=== PATIENT | female | born 1970 | race African-American/Black ===

== ENCOUNTER 2018-09-01 15:31 | Inpatient (IN) | payer BC ==
[~2018-09-01] VITALS: Ht 157.5 cm; Wt 142.2 kg
--- OUTSIDE RECORDS SUMMARY | 2018-09-01 15:39 | XMS REPORT | CCD ---
Author Author Auto Generated Organization [facility] Address Unknown Phone Unavailable Care Team Providers Care Telecommunications Cable Jointer Name Role Phone Olman Carlin CP Hugh Levi CP Problem List Condition Effective Dates Status Diabetes mellitus Resolved HTN - Hypertension Resolved Medications Medication Instructions Start Date End Date Status IDS med 100 mL IV, 4.17 ml/hr, Start date: 07/04/2012 07/07/2012 Discontinued 07/04/12 22:46:00, 100 ml, 143.182 Procardia XL 60 mg, 1 tab, Route: PO, Drug form: 07/06/2012 07/07/2012 Discontinued ERTAB, Daily, Dosing Weight 145.455, kg, Start date: 07/06/12 9:00:00, Duration: 30 day, Stop date: 08/04/12 9:00:00 heparin 5,000 unit, 1 mL, Route: SUB-Q, 07/04/2012 07/04/2012 Canceled Drug form: INJ, Q12H, Dosing Weight 143.182, kg, Start date: 07/04/12 21:00:00, Duration: 30 day, Stop date: 08/03/12 9:00:00 NS 1,000 mL 1,000 mL, Rate: 100 ml/hr, Infuse 07/05/2012 07/07/2012 Discontinued over: 10 hr, Route: IV, kg, Total Volume: 1,000, Start date: 07/05/12 6:44:00, Stop date: 08/04/12 6:43:00 IDS med Route: SUB-Q, Drug form: INJ, Q6H, 07/05/2012 07/07/2012 Discontinued Start date: 07/05/12 0:00:00, Stop date: 07/07/12 18:00:00 heparin 5,000 unit, 1 mL, Route: SUB-Q, 07/06/2012 07/07/2012 Discontinued Drug form: INJ, Q8H, Dosing Weight 145.455, kg, Start date: 07/06/12 0:00:00, Duration: 30 day, Stop date: 08/04/12 16:00:00 NIFEdipine 60 mg 60 mg, 1 tab, PO, Daily, 30 tab, 07/07/2012 Ordered oral tablet, Substitution Allowed, ERTAB extended release labetalol 300 mg 300 mg, 1 tab, PO, Q8H, 90 tab, 07/07/2012 Ordered oral tablet Substitution Allowed, TAB aspirin 81 mg 81 mg, 1 tab, PO, Daily, 30 tab, 07/07/2012 Ordered tablet, enteric Substitution Allowed, ECTAB coated labetalol 10 mg, 2 mL, Route: IVP, Drug form: 07/06/2012 07/07/2012 Discontinued INJ, Q10Min, Dosing Weight 145.455, kg, PRN Hypertension, Start date: 07/06/12 2:26:00, Duration: 30 day, Stop date: 08/05/12 3:25:00, For SBP > 180mmHg and/or DBP > 105mmHg aspirin 81 mg, 1 tab, Route: PO, Drug form: 07/06/2012 07/07/2012 Discontinued ECTAB, Daily, Dosing Weight 145.455, kg, Start date: 07/06/12 9:00:00, Duration: 30 day, Stop date: 08/04/12 9:00:00 Lipitor 80 mg, 1 tab, Route: PO, Drug form: 07/05/2012 07/04/2012 Discontinued TAB, QPM, Dosing Weight 143.182, kg, Start date: 07/05/12 17:00:00, Duration: 30 day, Stop date: 08/03/12 17:00:00 Saline Flush 0.9% 5 ml, Route: IVP, Drug Form: INJ, 07/04/2012 07/07/2012 Discontinued Dosing Weight 143.182, kg, Q12H, Start date: 07/04/12 21:00:00, Duration: 30 day, Stop date: 08/03/12 9:00:00 Saline Flush 0.9% 5 ml, Route: IVP, Drug Form: INJ, 07/04/2012 07/07/2012 Discontinued Dosing Weight 143.182, kg, PRN, PRN Line Flush, Start date: 07/04/12 19:16:00, Duration: 30 day, Stop date: 08/03/12 20:15:00 aspirin 81 mg 81 mg, 1 tab, Route: PO, Drug form: 07/04/2012 07/04/2012 Discontinued tablet, enteric ECTAB, Daily, Dosing Weight coated 143.182, kg, Start date: 07/04/12 20:00:00, Duration: 30 day, Stop date: 08/03/12 9:00:00 clevidipine 0.5 500 mg, 1,000 mL, Rate: Titrate, 07/04/2012 07/05/2012 Discontinued mg/mL intravenous Dosing Weight 143.182, kg, Route: emulsion 500 mg IV, Total Volume: 1,000, Duration: 30 day, Stop date: 08/03/12 19:39:00, Replace Every: 24 hr Lipitor 80 mg, 1 tab, Route: PO, Drug form: 07/04/2012 07/06/2012 Discontinued TAB, Bedtime, Dosing Weight 143.182, kg, Priority: STAT, Start date: 07/04/12 19:23:00, Duration: 30 day, Stop date: 08/02/12 21:00:00 labetalol 5 mg, 1 mL, Route: IVP, Drug form: 07/04/2012 07/05/2012 Completed INJ, ONCE, Dosing Weight 143.182, kg, Priority: STAT, Start date: 07/04/12 19:12:00, Stop date: 07/04/12 19:12:00 glipiZIDE 5 mg oral 2.5 mg, 0.5 tab, PO, Daily, 30 tab, 07/07/2012 Ordered tablet Substitution Allowed labetalol 300 mg, 1 tab, Route: PO, Drug 07/07/2012 07/07/2012 Discontinued form: TAB, Q8H, Dosing Weight 150, kg, Priority: Routine, Start date: 07/07/12 16:45:00, Duration: 30 day, Stop date: 08/06/12 16:00:00 labetalol 400 mg, 2 tab, Route: PO, Drug 07/05/2012 07/06/2012 Discontinued form: TAB, Q12H, Dosing Weight 145.455, kg, Priority: STAT, Start date: 07/05/12 12:58:00, Stop date: 08/04/12 9:00:00 Saline Flush 0.9% 5 mL, Route: IVP, Drug Form: INJ, 07/04/2012 07/07/2012 Discontinued kg, PRN, PRN Line Flush, Start date: 07/04/12 18:34:00, Duration: 30 day, Stop date: 08/03/12 19:33:00 Dextrose 50% Syringe 12.5 gm, 25 mL, Route: IVP, Drug 07/05/2012 07/05/2012 Discontinued Form: INJ, Dosing Weight 145.455, kg, PRN, PRN Abnormal Lab Result, Start date: 07/05/12 6:38:00, Duration: 30 day, Stop date: 08/04/12 7:37:00 Dextrose 50% Syringe 25 gm, 50 mL, Route: IVP, Drug 07/05/2012 07/05/2012 Discontinued Form: INJ, Dosing Weight 145.455, kg, PRN, PRN Abnormal Lab Result, Start date: 07/05/12 6:38:00, Duration: 30 day, Stop date: 08/04/12 7:37:00 Dextrose 50% Syringe 6.25 gm, 12.5 mL, Route: IVP, Drug 07/05/2012 07/05/2012 Discontinued Form: INJ, Dosing Weight 145.455, kg, PRN, PRN Abnormal Lab Result, Start date: 07/05/12 6:38:00, Duration: 30 day, Stop date: 08/04/12 7:37:00 insulin regular 100 5 unit, 0.05 mL, Route: SUB-Q, Drug 07/05/2012 07/05/2012 Discontinued units/mL human form: SOLN, PRN, Dosing Weight recombinant 145.455, kg, PRN Abnormal Lab Result, Start date: 07/05/12 6:38:00, Duration: 30 day, Stop date: 08/04/12 7:37:00 insulin regular 100 3 unit, 0.03 mL, Route: SUB-Q, Drug 07/05/2012 07/05/2012 Discontinued units/mL human form: SOLN, PRN, Dosing Weight recombinant 145.455, kg, PRN Abnormal Lab Result, Start date: 07/05/12 6:38:00, Duration: 30 day, Stop date: 08/04/12 7:37:00 insulin regular 100 7 unit, 0.07 mL, Route: SUB-Q, Drug 07/05/2012 07/05/2012 Discontinued units/mL human form: SOLN, PRN, Dosing Weight recombinant 145.455, kg, PRN Abnormal Lab Result, Start date: 07/05/12 6:38:00, Duration: 30 day, Stop date: 08/04/12 7:37:00 Cardene 40 mg in NS 40 mg, 200 mL, Rate: Titrate, 07/05/2012 07/06/2012 Discontinued 200 ml IV 40 mg Dosing Weight 145.455, kg, Route: IV, Total Volume: 200 mL, Duration: 30 day, Stop date: 08/04/12 0:10:00, Replace Every: 24 hr alteplase 81 mg, Route: IV, ONCE, Dosing 07/04/2012 07/04/2012 Completed Weight 143.182, kg, For Stroke Infusion, Start date: 07/04/12 20:37:00, Stop date: 07/04/12 20:37:00 alteplase 9 mg, Route: IV, ONCE, Dosing 07/04/2012 07/04/2012 Completed Weight 143.182, kg, For Stroke Bolus, Start date: 07/04/12 20:37:00, Stop date: 07/04/12 20:37:00 aspirin 81 mg 81 mg, 1 tab, Route: PO, Drug form: 07/05/2012 07/05/2012 Canceled tablet, enteric ECTAB, Daily, Dosing Weight coated 143.182, kg, Start date: 07/05/12 9:00:00, Duration: 30 day, Stop date: 08/03/12 9:00:00 IDS med 12.5 gm, 25 mL, Route: IV, Drug 07/04/2012 07/07/2012 Discontinued form: INJ, PRN, Start date: 07/04/12 23:00:00, Stop date: 07/07/12 22:59:00 Vital Signs Most recent to oldest [Reference Range]: 1 2 3 Height 160.02 cm (07/07/2012 12:52:00) 155.4 cm (07/06/2012 08:57:00) 160.02 cm (07/06/2012 08:55:00) Temperature Oral [96.4-99.1 DegF] 98.2 DegF (07/07/2012 15:33:00) 98.6 DegF (07/07/2012 11:27:00) 98.9 DegF (07/07/2012 07:26:00) Systolic Blood Pressure [90-140 mmHg] 168 mmHg *HI* (07/07/2012 16:00:00) 175 mmHg *HI* (07/07/2012 11:00:00) 151 mmHg *HI* (07/07/2012 10:00:00) Diastolic Blood Pressure [60-90 mmHg] 93 mmHg *HI* (07/07/2012 16:00:00) 91 mmHg *HI* (07/07/2012 11:00:00) 89 mmHg (07/07/2012 10:00:00) Respiratory Rate [14-20 BRMIN] 31 BRMIN *HI* (07/07/2012 16:00:00) 25 BRMIN *HI* (07/07/2012 14:00:00) 26 BRMIN *HI* (07/07/2012 13:00:00) Weight 143.182 kg (07/07/2012 12:52:00) 150 kg (07/06/2012 08:57:00) 150 kg (07/06/2012 08:57:00) Results BEDSIDE GLUCOSE TESTING Most recent to oldest [Reference Range]: 1 2 3 Gluc POC Lifscn [70-99 mg/dL] 158 mg/dL 1 *HI* (07/07/2012 14:54:00) 122 mg/dL 2 *HI* (07/07/2012 11:56:00) 131 mg/dL 3 *HI* (07/07/2012 09:14:00) Comment1 Notify RN/MD *NA* (07/07/2012 09:14:00) Notify RN/MD *NA* (07/06/2012 20:30:00) Notify RN/MD *NA* (07/06/2012 09:01:00) 1Interpretive Data: Upper Reportable Limit: 200 mg/dL. 2Interpretive Data: Upper Reportable Limit: 200 mg/dL. 3Interpretive Data: Upper Reportable Limit: 200 mg/dL. BLOOD BANK RESULTS Most recent to oldest [Reference Range]: 1 2 3 ABO/Rh B POS *Unknown* (07/04/2012 21:25:00) Antibody Scrn Negative (07/04/2012 21:25:00) CHEMISTRY Most recent to oldest [Reference Range]: 1 2 3 Sodium Lvl [135-145 mEq/L] 141 mEq/L (07/07/2012 12:54:20) 141 mEq/L (07/07/2012 02:07:00) 142 mEq/L (07/06/2012 02:15:04) Potassium Lvl [3.5-5.1 mEq/L] 4.2 mEq/L (07/07/2012 12:54:20) 3.7 mEq/L (07/07/2012 02:07:00) 3.8 mEq/L (07/06/2012 02:15:04) Chloride Lvl [95-109 mEq/L] 103 mEq/L (07/07/2012 12:54:20) 101 mEq/L (07/07/2012 02:07:00) 103 mEq/L (07/06/2012 02:15:04) CO2 [24-32 mEq/L] 28 mEq/L (07/07/2012 12:54:20) 28 mEq/L (07/07/2012 02:07:00) 27 mEq/L (07/06/2012 02:15:04) AGAP [10.0-20.0 mEq/L] 14.2 mEq/L (07/07/2012 12:54:20) 15.7 mEq/L (07/07/2012 02:07:00) 15.8 mEq/L (07/06/2012 02:15:04) Creatinine Lvl [0.5-1.4 mg/dL] 1.8 mg/dL *HI* (07/07/2012 12:54:20) 2.0 mg/dL *HI* (07/07/2012 02:07:00) 1.8 mg/dL *HI* (07/06/2012 02:15:04) eGFR 40 mL/min/1.73m2 4 *NA* (07/07/2012 12:54:20) 35 mL/min/1.73m2 5 *NA* (07/07/2012 02:07:00) 40 mL/min/1.73m2 6 *NA* (07/06/2012 02:15:04) BUN [7-22 mg/dL] 15 mg/dL (07/07/2012 12:54:20) 17 mg/dL (07/07/2012 02:07:00) 12 mg/dL (07/06/2012 02:15:04) B/C Ratio [6-25] 8 (07/05/2012 01:50:00) 7 (07/04/2012 19:20:00) Glucose Lvl [70-99 mg/dL] 116 mg/dL 7 *HI* (07/07/2012 12:54:20) 136 mg/dL 8 *HI* (07/07/2012 02:07:00) 138 mg/dL 9 *HI* (07/06/2012 02:15:04) POC Creatinine [0.5-1.4 mg/dL] 1.3 mg/dL (07/04/2012 18:55:00) Total Protein [6.4-8.4 g/dL] 6.6 g/dL (07/07/2012 02:07:00) 6.9 g/dL (07/05/2012 01:50:00) 6.4 g/dL (07/04/2012 19:20:00) Albumin Lvl [3.5-5.0 g/dL] 2.7 g/dL *LOW* (07/07/2012 02:07:00) 2.5 g/dL *LOW* (07/05/2012 01:50:00) 2.4 g/dL *LOW* (07/04/2012 19:20:00) Globulin [2.0-4.0 g/dL] 3.9 g/dL (07/07/2012 02:07:00) 4.4 g/dL *HI* (07/05/2012 01:50:00) 4.0 g/dL (07/04/2012 19:20:00) A/G Ratio [0.7-1.6] 0.7 (07/07/2012 02:07:00) 0.6 *LOW* (07/05/2012 01:50:00) 0.6 *LOW* (07/04/2012 19:20:00) Calcium Lvl [8.5-10.5 mg/dL] 8.4 mg/dL *LOW* (07/07/2012 12:54:20) 8.2 mg/dL *LOW* (07/07/2012 02:07:00) 8.0 mg/dL *LOW* (07/06/2012 02:15:04) Phosphorus [2.5-4.5 mg/dL] 4.6 mg/dL *HI* (07/07/2012 02:07:00) 4.3 mg/dL (07/06/2012 02:15:04) Magnesium Lvl [1.8-2.4 mg/dL] 1.9 mg/dL (07/07/2012 02:07:00) 1.7 mg/dL *LOW* (07/06/2012 02:15:04) ALT [0-65 unit/L] 18 unit/L (07/07/2012 02:07:00) 18 unit/L (07/05/2012 01:50:00) 15 unit/L (07/04/2012 19:20:00) AST [0-37 unit/L] 14 unit/L (07/07/2012 02:07:00) 48 unit/L *HI* (07/05/2012 01:50:00) 24 unit/L (07/04/2012 19:20:00) Alk Phos [39-136 unit/L] 64 unit/L (07/07/2012 02:07:00) 73 unit/L (07/05/2012 01:50:00) 77 unit/L (07/04/2012 19:20:00) Bili Total [0.2-1.3 mg/dL] 1.6 mg/dL *HI* (07/07/2012 02:07:00) 1.5 mg/dL *HI* (07/05/2012 01:50:00) 1.2 mg/dL (07/04/2012 19:20:00) Bili Direct [0.0-0.3 mg/dL] 0.4 mg/dL *HI* (07/07/2012 02:07:00) 0.2 mg/dL (07/04/2012 19:20:00) Bili Indirect [0.0-1.0 mg/dL] 1.2 mg/dL *HI* (07/07/2012 02:07:00) Total CK [12-191 unit/L] 60 unit/L (07/04/2012 19:20:00) Troponin-T [0.000-0.100 ng/mL] <0.010 ng/mL (07/04/2012 19:20:00) Troponin-I [0.00-0.40 ng/mL] 0.02 ng/mL (07/04/2012 19:20:00) CHD Risk [3.90-5.80] 5.37 (07/05/2012 09:12:26) 5.63 (07/05/2012:50:00) Chol [120-200 mg/dL] 145 mg/dL (07/05/2012 09:12:26) 152 mg/dL (07/05/2012:50:00) Trig [0-200 mg/dL] 126 mg/dL (07/05/2012 09:12:26) 128 mg/dL (07/05/2012:50:00) HDL [>=35 mg/dL] 27 mg/dL *LOW* (07/05/2012:12:26) 27 mg/dL *LOW* (07/05/2012 01:50:00) LDL [0-129 mg/dL] 93 mg/dL (07/05/2012 09:12:26) 99 mg/dL (07/05/2012 01:50:00) Hgb A1C 8.8 % 10 *NA* (07/05/2012 01:50:00) Ca Ion mgdL [4.65-5.20 mg/dL] 4.52 mg/dL *LOW* (07/06/2012 02:15:04) Ca Ion [1.16-1.30 mMol/L] 1.13 mMol/L *LOW* (07/06/2012 02:15:04) Ca Norm [1.16-1.30 mMol/L] 1.15 mMol/L *LOW* (07/06/2012 02:15:04) Ca Norm mgdL [4.65-5.20 mg/dL] 4.60 mg/dL *LOW* (07/06/2012 02:15:04) hCG Tot <1.0 mIU/mL 11 (07/04/2012 19:20:16) 4Result Comment: The eGFR is calculated using the CKD-EPI formula. In most young, healthy individuals the eGFR will be >90 mL/min/1.73m2. The eGFR declines with age. An eGFR of 60-89 may be normal in some populations, particularly the elderly, for whom the CKD-EPI formula has not been extensively validated. Use of the eGFR is not recommended in the following populations: Individuals with unstable creatinine concentrations, including patients and those with serious co-morbid conditions. Patients with extremes in muscle mass or diet. The data above are obtained from the National Kid[employer] Disease Education Program ( [employer]) which additionally recommends that when the eGFR is used in patients with extremes of body mass index for purposes of drug dosing, the eGFR should be mul tiplied by the estimated BMI. 5Result Comment: The eGFR is calculated using the CKD-EPI formula. In most young, healthy individuals the eGFR will be >90 mL/min/1.73m2. The eGFR declines with age. An eGFR of 60-89 may be normal in some populations, particularly the elderly, for whom the CKD-EPI formula has not been extensively validated. Use of the eGFR is not recommended in the following populations: Individuals with unstable creatinine concentrations, including patients and those with serious co-morbid conditions. Patients with extremes in muscle mass or diet. The data above are obtained from the National Kid[employer] Education Program ( [employer]DEP) which additionally recommends that when the eGFR is used in patients with extremes of body mass index for purposes of drug dosing, the eGFR should be mul tiplied by the estimated BMI. 6Result Comment: The eGFR is calculated using the CKD-EPI formula. In most young, healthy individuals the eGFR will be >90 mL/min/1.73m2. The eGFR declines with age. An eGFR of 60-89 may be normal in some populations, particularly the elderly, for whom the CKD-EPI formula has not been extensively validated. Use of the eGFR is not recommended in the following populations: Individuals with unstable creatinine concentrations, including patients and those with serious co-morbid conditions. Patients with extremes in muscle mass or diet. The data above are obtained from the National Kid[employer] Disease Education Program ( [employer]DEP) which additionally recommends that when the eGFR is used in patients with extremes of body mass index for purposes of drug dosing, the eGFR should be mul tiplied by the estimated BMI. 7Interpretive Data: Adult reference range values reflect the clinical guidelines of the [place] [employer]. 8Interpretive Data: Adult reference range values reflect the clinical guidelines of the [place] [employer]. 9Interpretive Data: Adult reference range values reflect the clinical guidelines of the [place] [employer]. 10Interpretive Data: HbA1C% eAG(mg/dL) Interpretation 6.0 126 Very good control 6.5 140 Very good control 7.0 154 Good Control 7.5 169 Good Control 8.0 183 Marginal Control, take action to lower 8.5 197 Marginal Control, take action to lower 9.0 212 Poor Control, take action to lower 9.5 226 Poor Control, take action to lower 10.0 240 Poor Control, take action to lower 11Interpretive Data: Reference Range: Male 0 - 5 mIU/mL Non- Female 0 - 5 mIU/mL Note: hCG result should be used in conjunction with symptoms, results of other tests, and clinical impressions. Weeks of Gestation hCG (mIU/mL) 3 6 - 71 4 10-750 5 217 - 7,138 6 158 -31,795 7 3,697 - 163,563 8 32,065 - 149,571 9 63,803 - 151,410 10 46,506 - 186,977 11 27,832 - 210,612 14 13,950 - 62,530 15 12,039 - 70,971 16 9,040 - 56,451 17 8,175 - 55,868 18 8,099 - 58,176 HEMATOLOGY Most recent to oldest [Reference Range]: 1 2 3 WBC [3.7-10.4 K/CMM] 9.8 K/CMM (07/07/2012 02:07:00) 8.8 K/CMM (07/06/2012 02:15:00) 12.7 K/CMM *HI* (07/05/2012 01:50:00) RBC [4.20-5.40 M/CMM] 4.76 M/CMM (07/07/2012 02:07:00) 4.74 M/CMM (07/06/2012 02:15:00) 5.02 M/CMM (07/05/2012 01:50:00) Hgb [12.0-16.0 g/dL] 10.2 g/dL *LOW* (07/07/2012 02:07:00) 10.0 g/dL *LOW* (07/06/2012 02:15:00) 10.5 g/dL *LOW* (07/05/2012 01:50:00) Hct [36.0-48.0 %] 33.5 % *LOW* (07/07/2012 02:07:00) 33.5 % *LOW* (07/06/2012 02:15:00) 34.0 % *LOW* (07/05/2012 01:50:00) MCV [81.0-99.0 fL] 70.4 fL *LOW* (07/07/2012 02:07:00) 70.6 fL *LOW* (07/06/2012 02:15:00) 67.7 fL *LOW* (07/05/2012 01:50:00) MCH [27.0-31.0 pg] 21.4 pg *LOW* (07/07/2012 02:07:00) 21.2 pg *LOW* (07/06/2012 02:15:00) 21.0 pg *LOW* (07/05/2012 01:50:00) MCHC [32.0-36.0 g/dL] 30.4 g/dL 12 *LOW* (07/07/2012 02:07:00) 30.0 g/dL *LOW* (07/06/2012 02:15:00) 30.9 g/dL 13 *LOW* (07/05/2012 01:50:00) RDW [11.5-14.5 %] 16.6 % *HI* (07/07/2012 02:07:00) 17.0 % *HI* (07/06/2012 02:15:00) 16.8 % *HI* (07/05/2012 01:50:00) Platelet [133-450 K/CMM] 426 K/CMM (07/07/2012 02:07:00) 419 K/CMM (07/06/2012 02:15:00) 436 K/CMM (07/05/2012 01:50:00) MPV [7.4-10.4 fL] 8.4 fL (07/07/2012 02:07:00) 8.5 fL (07/06/2012 02:15:00) 9.2 fL (07/05/2012 01:50:00) Segs [45.0-75.0 %] 66.4 % (07/07/2012 02:07:00) 64.6 % (07/06/2012 02:15:00) 85.3 % *HI* (07/05/2012 01:50:00) Lymphocytes [20.0-40.0 %] 22.9 % (07/07/2012 02:07:00) 24.3 % (07/06/2012 02:15:00) 8.6 % *LOW* (07/05/2012 01:50:00) Monocytes [2.0-12.0 %] 7.6 % (07/07/2012 02:07:00) 8.4 % (07/06/2012 02:15:00) 5.0 % (07/05/2012 01:50:00) Eosinophils [0.0-4.0 %] 2.3 % (07/07/2012 02:07:00) 2.0 % (07/06/2012 02:15:00) 0.1 % (07/05/2012 01:50:00) Basophils [0.0-1.0 %] 0.8 % (07/07/2012 02:07:00) 0.7 % (07/06/2012 02:15:00) 1.0 % (07/05/2012 01:50:00) Segs-Bands # [1.5-8.1 K/CMM] 6.5 K/CMM (07/07/2012 02:07:00) 5.7 K/CMM (07/06/2012 02:15:00) 10.8 K/CMM *HI* (07/05/2012 01:50:00) Lymphocytes # [1.0-5.5 K/CMM] 2.2 K/CMM (07/07/2012 02:07:00) 2.1 K/CMM (07/06/2012 02:15:00) 1.1 K/CMM (07/05/2012 01:50:00) Monocytes # [0.0-0.8 K/CMM] 0.7 K/CMM (07/07/2012 02:07:00) 0.7 K/CMM (07/06/2012 02:15:00) 0.6 K/CMM (07/05/2012 01:50:00) Eosinophils # [0.0-0.5 K/CMM] 0.2 K/CMM (07/07/2012 02:07:00) 0.2 K/CMM (07/06/2012 02:15:00) 0.2 K/CMM (07/04/2012 19:20:00) Basophils # [0.0-0.2 K/CMM] 0.1 K/CMM (07/07/2012 02:07:00) 0.1 K/CMM (07/06/2012 02:15:00) 0.1 K/CMM (07/05/2012 01:50:00) Polychrom [None Seen] Slight (07/07/2012 02:07:00) Slight (07/05/2012 01:50:00) Slight (07/04/2012 19:20:00) Hypochrom [None Seen] Moderate *ABN* (07/07/2012 02:07:00) Moderate *ABN* (07/05/2012 01:50:00) Slight (07/04/2012 19:20:00) Macrocyte [None Seen] 1+ *ABN* (07/07/2012 02:07:00) Microcyte [None Seen] 2+ *ABN* (07/07/2012 02:07:00) 2+ *ABN* (07/06/2012 02:15:00) 2+ *ABN* (07/05/2012 01:50:00) Elliptocyte [None Seen] Slight *ABN* (07/07/2012 02:07:00) Plt Morph Clumped 14 (07/04/2012 19:20:00) Large Plt [None Seen] Slight *ABN* (07/07/2012 02:07:00) PT [12.0-14.7 seconds] 15.3 seconds *HI* (07/07/2012 02:07:00) 16.5 seconds *HI* (07/06/2012 02:15:00) 15.8 seconds *HI* (07/04/2012 19:20:00) INR [0.85-1.17] 1.19 15 *HI* (07/07/2012 02:07:00) 1.31 16 *HI* (07/06/2012 02:15:00) 1.24 17 *HI* (07/04/2012 19:20:00) PTT [22.9-35.8 seconds] 31.7 seconds 18 (07/07/2012 02:07:00) 32.1 seconds 19 (07/06/2012 02:15:04) 21.6 seconds 20 *LOW* (07/04/2012 19:20:00) 12Result Comment: hp rechecked 13Result Comment: hp rechecked 14Result Comment: Due to occasional clumps, the actual count may be slightly higher. 15Interpretive Data: RECOMMENDED RANGES FOR PROTIME INR: 2.0-3.0 for most medical and surgical thromboembolic states. 2.5-3.5 for artificial heart valves and recurrent embolism. INR SHOULD BE USED ONLY FOR PATIENTS ON STABLE ANTICOAGULANT THERAPY. 16Interpretive Data: RECOMMENDED RANGES FOR PROTIME INR: 2.0-3.0 for most medical and surgical thromboembolic states. 2.5-3.5 for artificial heart valves and recurrent embolism. INR SHOULD BE USED ONLY FOR PATIENTS ON STABLE ANTICOAGULANT THERAPY. 17Interpretive Data: RECOMMENDED RANGES FOR PROTIME INR: 2.0-3.0 for most medical and surgical thromboembolic states. 2.5-3.5 for artificial heart valves and recurrent embolism. INR SHOULD BE USED ONLY FOR PATIENTS ON STABLE ANTICOAGULANT THERAPY. 18Interpretive Data: Heparin Therapeutic Range: 57 - 92 Seconds 19Interpretive Data: Heparin Therapeutic Range: 57 - 92 Seconds 20Interpretive Data: Heparin Therapeutic Range: 57 - 92 Seconds Procedures Procedures Date Related Diagnosis Hernia repair
--- OUTSIDE RECORDS SUMMARY | 2018-09-01 15:39 | XMS REPORT | Continuity of Care Document ---
Author Author [facility] Interface Address Unknown Phone Unavailable Problems Problem Status Onset Date Classification Date Reported Comments Source STROKE Active 07/04/2012 [facility] Diabetes mellitus Resolved Problem 07/09/2012 [facility] HTN - Hypertension Resolved Problem 07/09/2012 [facility] CVA Active [facility] Medications Medication Details Route Status Patient Instructions Ordering Provider Order Date Source labetalol 300 mg, 1 tab, Route: PO, Drug form: TAB, Q8H, Dosing Weight 150, kg, Priority: Routine, Start date: 07/07/12 16:45:00, Duration: 30 day, Stop date: 08/06/12 16:00:00 PO No Longer Active Gurmeet 07/07/2012 [facility] glipiZIDE 5 mg oral tablet 2.5 mg, 0.5 tab, PO, Daily, 30 tab, Substitution Allowed PO Active Mcgraw 07/07/2012 [facility] NIFEdipine 60 mg oral tablet, extended release 60 mg, 1 tab, PO, Daily, 30 tab, Substitution Allowed, ERTAB PO Active Mcgraw 07/07/2012 [facility] labetalol 300 mg oral tablet 300 mg, 1 tab, PO, Q8H, 90 tab, Substitution Allowed, TAB PO Active Mcgraw 07/07/2012 [facility] aspirin 81 mg tablet, enteric coated 81 mg, 1 tab, PO, Daily, 30 tab, Substitution Allowed, ECTAB PO Active Mcgraw 07/07/2012 [facility] Procardia XL 60 mg, 1 tab, Route: PO, Drug form: ERTAB, Daily, Dosing Weight 145.455, kg, Start date: 07/06/12 9:00:00, Duration: 30 day, Stop date: 08/04/12 9:00:00 PO No Longer Active Sherie 07/06/2012 [facility] aspirin 81 mg, 1 tab, Route: PO, Drug form: ECTAB, Daily, Dosing Weight 145.455, kg, Start date: 07/06/12 9:00:00, Duration: 30 day, Stop date: 08/04/12 9:00:00 PO No Longer Active Niko 07/06/2012 [facility] labetalol 10 mg, 2 mL, Route: IVP, Drug form: INJ, Q10Min, Dosing Weight 145.455, kg, PRN Hypertension, Start date: 07/06/12 2:26:00, Duration: 30 day, Stop date: 08/05/12 3:25:00, For SBP > 180mmHg and/or DBP > 105mmHg IVP No Longer Active Niko 07/06/2012 [facility] heparin 5,000 unit, 1 mL, Route: SUB-Q, Drug form: INJ, Q8H, Dosing Weight 145.455, kg, Start date: 07/06/12 0:00:00, Duration: 30 day, Stop date: 08/04/12 16:00:00 SUB-Q No Longer Active Niko 07/06/2012 [facility] Lipitor 80 mg, 1 tab, Route: PO, Drug form: TAB, QPM, Dosing Weight 143.182, kg, Start date: 07/05/12 17:00:00, Duration: 30 day, Stop date: 08/03/12 17:00:00 PO No Longer Active Ramila 07/05/2012 [facility] labetalol 400 mg, 2 tab, Route: PO, Drug form: TAB, Q12H, Dosing Weight 145.455, kg, Priority: STAT, Start date: 07/05/12 12:58:00, Stop date: 08/04/12 9:00:00 PO No Longer Active Gurmeet 07/05/2012 [facility] aspirin 81 mg tablet, enteric coated 81 mg, 1 tab, Route: PO, Drug form: ECTAB, Daily, Dosing Weight 143.182, kg, Start date: 07/05/12 9:00:00, Duration: 30 day, Stop date: 08/03/12 9:00:00 PO No Longer Active Ramila 07/05/2012 [facility] NS 1,000 mL 1,000 mL, Rate: 100 ml/hr, Infuse over: 10 hr, Route: IV, kg, Total Volume: 1,000, Start date: 07/05/12 6:44:00, Stop date: 08/04/12 6:43:00 IV No Longer Active Gurmeet 07/05/2012 [facility] Dextrose 50% Syringe 12.5 gm, 25 mL, Route: IVP, Drug Form: INJ, Dosing Weight 145.455, kg, PRN, PRN Abnormal Lab Result, Start date: 07/05/12 6:38:00, Duration: 30 day, Stop date: 08/04/12 7:37:00 IVP No Longer Active Ryne 07/05/2012 [facility] insulin regular 100 units/mL human recombinant 5 unit, 0.05 mL, Route: SUB-Q, Drug form: SOLN, PRN, Dosing Weight 145.455, kg, PRN Abnormal Lab Result, Start date: 07/05/12 6:38:00, Duration: 30 day, Stop date: 08/04/12 7:37:00 SUB-Q No Longer Active Ryne 07/05/2012 [facility] Cardene 40 mg in NS 200 ml IV 40 mg 40 mg, 200 mL, Rate: Titrate, Dosing Weight 145.455, kg, Route: IV, Total Volume: 200 mL, Duration: 30 day, Stop date: 08/04/12 0:10:00, Replace Every: 24 hr IV No Longer Active Gurmeet 07/05/2012 [facility] IDS med Route: SUB-Q, Drug form: INJ, Q6H, Start date: 07/05/12 0:00:00, Stop date: 07/07/12 18:00:00 SUB-Q No Longer Active Romario 07/05/2012 [facility] IDS med 12.5 gm, 25 mL, Route: IV, Drug form: INJ, PRN, Start date: 07/04/12 23:00:00, Stop date: 07/07/12 22:59:00 IV No Longer Active Romario 07/05/2012 [facility] IDS med 100 mL IV, 4.17 ml/hr, Start date: 07/04/12 22:46:00, 100 ml, 143.182 IV No Longer Active Romario 07/05/2012 [facility] heparin 5,000 unit, 1 mL, Route: SUB-Q, Drug form: INJ, Q12H, Dosing Weight 143.182, kg, Start date: 07/04/12 21:00:00, Duration: 30 day, Stop date: 08/03/12 9:00:00 SUB-Q No Longer Active Ramila 07/05/2012 [facility] Saline Flush 0.9% 5 ml, Route: IVP, Drug Form: INJ, Dosing Weight 143.182, kg, Q12H, Start date: 07/04/12 21:00:00, Duration: 30 day, Stop date: 08/03/12 9:00:00 IVP No Longer Active Ramila 07/05/2012 [facility] alteplase 81 mg, Route: IV, ONCE, Dosing Weight 143.182, kg, For Stroke Infusion, Start date: 07/04/12 20:37:00, Stop date: 07/04/12 20:37:00 IV No Longer Active Enriquez 07/05/2012 [facility] aspirin 81 mg tablet, enteric coated 81 mg, 1 tab, Route: PO, Drug form: ECTAB, Daily, Dosing Weight 143.182, kg, Start date: 07/04/12 20:00:00, Duration: 30 day, Stop date: 08/03/12 9:00:00 PO No Longer Active Ramila 07/05/2012 [facility] clevidipine 0.5 mg/mL intravenous emulsion 500 mg 500 mg, 1,000 mL, Rate: Titrate, Dosing Weight 143.182, kg, Route: IV, Total Volume: 1,000, Duration: 30 day, Stop date: 08/03/12 19:39:00, Replace Every: 24 hr IV No Longer Active Hayley 07/05/2012 [facility] Lipitor 80 mg, 1 tab, Route: PO, Drug form: TAB, Bedtime, Dosing Weight 143.182, kg, Priority: STAT, Start date: 07/04/12 19:23:00, Duration: 30 day, Stop date: 08/02/12 21:00:00 PO No Longer Active Gurmeet 07/05/2012 [facility] Saline Flush 0.9% 5 ml, Route: IVP, Drug Form: INJ, Dosing Weight 143.182, kg, PRN, PRN Line Flush, Start date: 07/04/12 19:16:00, Duration: 30 day, Stop date: 08/03/12 20:15:00 IVP No Longer Active Ramila 07/05/2012 [facility] labetalol 5 mg, 1 mL, Route: IVP, Drug form: INJ, ONCE, Dosing Weight 143.182, kg, Priority: STAT, Start date: 07/04/12 19:12:00, Stop date: 07/04/12 19:12:00 IVP No Longer Active Ariza 07/05/2012 [facility] Saline Flush 0.9% 5 mL, Route: IVP, Drug Form: INJ, kg, PRN, PRN Line Flush, Start date: 07/04/12 18:34:00, Duration: 30 day, Stop date: 08/03/12 19:33:00 IVP No Longer Active Ariza 07/05/2012 [facility] Allergies, Adverse Reactions, Alerts Substance Category Reaction Severity Reaction type Status Date Reported Comments Source Immunizations Immunization Date Given Site Status Last Updated Comments Source Results Order Name Results Value Reference Range Date Interpretation Comments Source BEDSIDE GLUCOSE TESTING Gluc POC Lifscn 158 mg/dL 70 - 99 07/07/2012 [place] 1Interpretive Data: Upper Reportable Limit: 200 mg/dL. [facility] CHEMISTRY eGFR 40 mL/min/1.73m2 07/07/2012 NA 4Result Comment: The eGFR is calculated using [...] from the National Kidney Disease Education Program (NKDEP) which additionally recommends that when the eGFR is used in patients with extremes of body mass index for purposes of drug dosing, the eGFR should be multiplied by the estimated BMI. [facility] CHEMISTRY AGAP 14.2 meq/L 10.0 - 20.0 07/07/2012 Normal [facility] CHEMISTRY Potassium Lvl 4.2 meq/L 3.5 - 5.1 07/07/2012 Normal [facility] CHEMISTRY Glucose Lvl 116 mg/dL 70 - 99 07/07/2012 [place] 7Interpretive Data: Adult reference range values reflect the clinical guidelines of the [place] [employer]. [facility] CHEMISTRY Chloride Lvl 103 meq/L 95 - 109 07/07/2012 Normal [facility] CHEMISTRY Calcium Lvl 8.4 mg/dL 8.5 - 10.5 07/07/2012 LOW [facility] CHEMISTRY CO2 28 meq/L 24 - 32 07/07/2012 Normal [facility] CHEMISTRY Sodium Lvl 141 meq/L 135 - 145 07/07/2012 Normal [facility] CHEMISTRY BUN 15 mg/dL 7 - 22 07/07/2012 Normal [facility] CHEMISTRY Creatinine Lvl 1.8 mg/dL 0.5 - 1.4 07/07/2012 [facility] BEDSIDE GLUCOSE TESTING Gluc POC Lifscn 122 mg/dL 70 - 99 07/07/2012 [place] 2Interpretive Data: Upper Reportable Limit: 200 mg/dL. [facility] BEDSIDE GLUCOSE TESTING Comment1 Notify RN/ 07/07/2012 NA [facility] BEDSIDE GLUCOSE TESTING Gluc POC Lifscn 131 mg/dL 70 - 99 07/07/2012 [place] 3Interpretive Data: Upper Reportable Limit: 200 mg/dL. [facility] CHEMISTRY Bili Direct 0.4 mg/dL 0.0 - 0.3 07/07/2012 [facility] CHEMISTRY Bili Total 1.6 mg/dL 0.2 - 1.3 07/07/2012 [facility] CHEMISTRY Total Protein 6.6 g/dL 6.4 - 8.4 07/07/2012 Normal [facility] CHEMISTRY AST 14 unit/L 0 - 37 07/07/2012 Normal [facility] CHEMISTRY ALT 18 unit/L 0 - 65 07/07/2012 Normal [facility] CHEMISTRY Alk Phos 64 unit/L 39 - 136 07/07/2012 Normal [facility] CHEMISTRY Albumin Lvl 2.7 g/dL 3.5 - 5.0 07/07/2012 LOW [facility] CHEMISTRY Bili Indirect 1.2 mg/dL 0.0 - 1.0 07/07/2012 [facility] CHEMISTRY A/G Ratio 0.7 0.7 - 1.6 07/07/2012 Normal [facility] CHEMISTRY Globulin 3.9 g/dL 2.0 - 4.0 07/07/2012 Normal [facility] CHEMISTRY Phosphorus 4.6 mg/dL 2.5 - 4.5 07/07/2012 [facility] CHEMISTRY AGAP 15.7 meq/L 10.0 - 20.0 07/07/2012 Normal [facility] CHEMISTRY eGFR 35 mL/min/1.73m2 07/07/2012 NA 5Result Comment: The eGFR is calculated using [...] from the National Kidney Disease Education Program (NKDEP) which additionally recommends that when the eGFR is used in patients with extremes of body mass index for purposes of drug dosing, the eGFR should be multiplied by the estimated BMI. [facility] CHEMISTRY CO2 28 meq/L 24 - 32 07/07/2012 Normal [facility] CHEMISTRY Calcium Lvl 8.2 mg/dL 8.5 - 10.5 07/07/2012 LOW [facility] CHEMISTRY Creatinine Lvl 2.0 mg/dL 0.5 - 1.4 07/07/2012 [facility] CHEMISTRY BUN 17 mg/dL 7 - 22 07/07/2012 Normal [facility] CHEMISTRY Potassium Lvl 3.7 meq/L 3.5 - 5.1 07/07/2012 Normal [facility] CHEMISTRY Sodium Lvl 141 meq/L 135 - 145 07/07/2012 Normal [facility] CHEMISTRY Chloride Lvl 101 meq/L 95 - 109 07/07/2012 Normal [facility] CHEMISTRY Glucose Lvl 136 mg/dL 70 - 99 07/07/2012 [place] 8Interpretive Data: Adult reference range values reflect the clinical guidelines of the [place] [employer]. [facility] CHEMISTRY Magnesium Lvl 1.9 mg/dL 1.8 - 2.4 07/07/2012 Normal [facility] HEMATOLOGY MCH 21.4 pg 27.0 - 31.0 07/07/2012 LOW [facility] HEMATOLOGY MCHC 30.4 g/dL 32.0 - 36.0 07/07/2012 LOW 12Result Comment: hp rechecked [facility] HEMATOLOGY RDW 16.6 % 11.5 - 14.5 07/07/2012 [facility] HEMATOLOGY Platelet 426 K/CMM 133 - 450 07/07/2012 Normal [facility] HEMATOLOGY MPV 8.4 fL 7.4 - 10.4 07/07/2012 Normal [facility] HEMATOLOGY WBC 9.8 K/CMM 3.7 - 10.4 07/07/2012 Normal [facility] HEMATOLOGY RBC 4.76 M/CMM 4.20 - 5.40 07/07/2012 Normal [facility] HEMATOLOGY Hgb 10.2 g/dL 12.0 - 16.0 07/07/2012 LOW [facility] HEMATOLOGY Hct 33.5 % 36.0 - 48.0 07/07/2012 LOW [facility] HEMATOLOGY MCV 70.4 fL 81.0 - 99.0 07/07/2012 LOW [facility] HEMATOLOGY INR 1.19 0.85 - 1.17 07/07/2012 [place] 15Interpretive Data: RECOMMENDED RANGES FOR PROTIME INR: 2.0-3.0 for most medical and surgical thromboembolic states. 2.5-3.5 for artificial heart valves and recurrent embolism. INR SHOULD BE USED ONLY FOR PATIENTS ON STABLE ANTICOAGULANT THERAPY. [facility] HEMATOLOGY PT 15.3 s 12.0 - 14.7 07/07/2012 [facility] HEMATOLOGY PTT 31.7 s 22.9 - 35.8 07/07/2012 Normal 18Interpretive Data: Heparin Therapeutic Range: 57 - 92 Seconds [facility] HEMATOLOGY Polychrom Slight (07/07/2012 02:07:00) None Seen 07/07/2012 Normal [facility] HEMATOLOGY Macrocyte 1+ *ABN* (07/07/2012 02:07:00) None Seen 07/07/2012 ABN [facility] HEMATOLOGY Hypochrom Moderate *ABN* (07/07/2012 02:07:00) None Seen 07/07/2012 ABN [facility] HEMATOLOGY Microcyte 2+ *ABN* (07/07/2012 02:07:00) None Seen 07/07/2012 ABN [facility] HEMATOLOGY Elliptocyte Slight *ABN* (07/07/2012 02:07:00) None Seen 07/07/2012 ABN [facility] HEMATOLOGY Large Plt Slight *ABN* (07/07/2012 02:07:00) None Seen 07/07/2012 ABN [facility] HEMATOLOGY Eosinophils 2.3 % 0.0 - 4.0 07/07/2012 Normal [facility] HEMATOLOGY Monocytes 7.6 % 2.0 - 12.0 07/07/2012 Normal [facility] HEMATOLOGY Basophils 0.8 % 0.0 - 1.0 07/07/2012 Normal [facility] HEMATOLOGY Segs 66.4 % 45.0 - 75.0 07/07/2012 [facility] HEMATOLOGY Eosinophils # 0.2 K/CMM 0.0 - 0.5 07/07/2012 Normal [facility] HEMATOLOGY Monocytes # 0.7 K/CMM 0.0 - 0.8 07/07/2012 [facility] HEMATOLOGY Basophils # 0.1 K/CMM 0.0 - 0.2 07/07/2012 [facility] HEMATOLOGY Lymphocytes 22.9 % 20.0 - 40.0 07/07/2012 Normal [facility] HEMATOLOGY Lymphocytes # 2.2 K/CMM 1.0 - 5.5 07/07/2012 [facility] HEMATOLOGY Segs-Bands # 6.5 K/CMM 1.5 - 8.1 07/07/2012 [facility] BEDSIDE GLUCOSE TESTING Comment1 Notify RN/MD 07/07/2012 [facility] BEDSIDE GLUCOSE TESTING Comment1 Notify RN/ 07/06/2012 [facility] CHEMISTRY Phosphorus 4.3 mg/dL 2.5 - 4.5 07/06/2012 Normal [facility] CHEMISTRY Ca Norm 1.15 mMol/L 1.16 - 1.30 07/06/2012 [facility] CHEMISTRY Ca Ion 1.13 mMol/L 1.16 - 1.30 07/06/2012 [facility] CHEMISTRY Ca Norm mgdL 4.60 mg/dL 4.65 - 5.20 07/06/2012 [facility] CHEMISTRY Ca Ion mgdL 4.52 mg/dL 4.65 - 5.20 07/06/2012 [facility] CHEMISTRY Magnesium Lvl 1.7 mg/dL 1.8 - 2.4 07/06/2012 [facility] CHEMISTRY AGAP 15.8 meq/L 10.0 - 20.0 07/06/2012 Normal [facility] CHEMISTRY eGFR 40 mL/min/1.73m2 07/06/2012 NA 6Result Comment: The eGFR is calculated using [...] from the National Kidney Disease Education Program (NKDEP) which additionally recommends that when the eGFR is used in patients with extremes of body mass index for purposes of drug dosing, the eGFR should be multiplied by the estimated BMI. [facility] CHEMISTRY Calcium Lvl 8.0 mg/dL 8.5 - 10.5 07/06/2012 LOW [facility] CHEMISTRY Chloride Lvl 103 meq/L 95 - 109 07/06/2012 Normal [facility] CHEMISTRY Potassium Lvl 3.8 meq/L 3.5 - 5.1 07/06/2012 Normal [facility] CHEMISTRY CO2 27 meq/L 24 - 32 07/06/2012 Normal [facility] CHEMISTRY BUN 12 mg/dL 7 - 22 07/06/2012 Normal [facility] CHEMISTRY Sodium Lvl 142 meq/L 135 - 145 07/06/2012 Normal [facility] CHEMISTRY Creatinine Lvl 1.8 mg/dL 0.5 - 1.4 07/06/2012 HI [facility] CHEMISTRY Glucose Lvl 138 mg/dL 70 - 99 07/06/2012 [place] 9Interpretive Data: Adult reference range values reflect the clinical guidelines of the [place] [employer]. [facility] HEMATOLOGY PTT 32.1 s 22.9 - 35.8 07/06/2012 Normal 19Interpretive Data: Heparin Therapeutic Range: 57 - 92 Seconds [facility] HEMATOLOGY Basophils 0.7 % 0.0 - 1.0 07/06/2012 Normal [facility] HEMATOLOGY Segs-Bands # 5.7 K/CMM 1.5 - 8.1 07/06/2012 Normal [facility] HEMATOLOGY Lymphocytes 24.3 % 20.0 - 40.0 07/06/2012 Normal [facility] HEMATOLOGY Segs 64.6 % 45.0 - 75.0 07/06/2012 Normal [facility] HEMATOLOGY Eosinophils 2.0 % 0.0 - 4.0 07/06/2012 Normal [facility] HEMATOLOGY Monocytes 8.4 % 2.0 - 12.0 07/06/2012 Normal [facility] HEMATOLOGY Monocytes # 0.7 K/CMM 0.0 - 0.8 07/06/2012 Normal [facility] HEMATOLOGY Microcyte 2+ *ABN* (07/06/2012 02:15:00) None Seen 07/06/2012 ABN [facility] HEMATOLOGY Basophils # 0.1 K/CMM 0.0 - 0.2 07/06/2012 Normal [facility] HEMATOLOGY Eosinophils # 0.2 K/CMM 0.0 - 0.5 07/06/2012 Normal [facility] HEMATOLOGY Lymphocytes # 2.1 K/CMM 1.0 - 5.5 07/06/2012 Normal [facility] HEMATOLOGY INR 1.31 0.85 - 1.17 07/06/2012 [place] 16Interpretive Data: RECOMMENDED RANGES FOR PROTIME INR: 2.0-3.0 for most medical and surgical thromboembolic states. 2.5-3.5 for artificial heart valves and recurrent embolism. INR SHOULD BE USED ONLY FOR PATIENTS ON STABLE ANTICOAGULANT THERAPY. [facility] HEMATOLOGY PT 16.5 s 12.0 - 14.7 07/06/2012 [facility] HEMATOLOGY RBC 4.74 M/CMM 4.20 - 5.40 07/06/2012 Normal [facility] HEMATOLOGY Hgb 10.0 g/dL 12.0 - 16.0 07/06/2012 [facility] HEMATOLOGY MCV 70.6 fL 81.0 - 99.0 07/06/2012 [facility] HEMATOLOGY Hct 33.5 % 36.0 - 48.0 07/06/2012 [facility] HEMATOLOGY WBC 8.8 K/CMM 3.7 - 10.4 07/06/2012 Normal [facility] HEMATOLOGY MCH 21.2 pg 27.0 - 31.0 07/06/2012 [facility] HEMATOLOGY MPV 8.5 fL 7.4 - 10.4 07/06/2012 [facility] HEMATOLOGY Platelet 419 K/CMM 133 - 450 07/06/2012 Normal [facility] HEMATOLOGY RDW 17.0 % 11.5 - 14.5 07/06/2012 [facility] HEMATOLOGY MCHC 30.0 g/dL 32.0 - 36.0 07/06/2012 LOW [facility] CHEMISTRY LDL 93 mg/dL 0 - 129 07/05/2012 Normal [facility] CHEMISTRY HDL 27 mg/dL >=35 07/05/2012 LOW [facility] CHEMISTRY Chol 145 mg/dL 120 - 200 07/05/2012 Normal [facility] CHEMISTRY Trig 126 mg/dL 0 - 200 07/05/2012 Normal [facility] CHEMISTRY CHD Risk 5.37 3.90 - 5.80 07/05/2012 Normal [facility] CHEMISTRY Bili Total 1.5 mg/dL 0.2 - 1.3 07/05/2012 [facility] CHEMISTRY Total Protein 6.9 g/dL 6.4 - 8.4 07/05/2012 Normal [facility] CHEMISTRY AST 48 unit/L 0 - 37 07/05/2012 [facility] CHEMISTRY Alk Phos 73 unit/L 39 - 136 07/05/2012 Normal [facility] CHEMISTRY Albumin Lvl 2.5 g/dL 3.5 - 5.0 07/05/2012 LOW [facility] CHEMISTRY ALT 18 unit/L 0 - 65 07/05/2012 Normal [facility] CHEMISTRY B/C Ratio 8 6 - 25 07/05/2012 Normal [facility] CHEMISTRY Globulin 4.4 g/dL 2.0 - 4.0 07/05/2012 [facility] CHEMISTRY A/G Ratio 0.6 0.7 - 1.6 07/05/2012 LOW [facility] CHEMISTRY Hgb A1C 8.8 % 07/05/2012 NA 10Interpretive Data: HbA1C% eAG(mg/dL) Interpretation 6.0 126 Very good control 6.5 140 Very good control 7.0 154 Good Control 7.5 169 Good Control 8.0 183 Marginal Control, take action to lower 8.5 197 Marginal Control, take action to lower 9.0 212 Poor Control, take action to lower 9.5 226 Poor Control, take action to lower 10.0 240 Poor Control, take action to lower [facility] CHEMISTRY CHD Risk 5.63 3.90 - 5.80 07/05/2012 Normal [facility] CHEMISTRY LDL 99 mg/dL 0 - 129 07/05/2012 Normal [facility] CHEMISTRY HDL 27 mg/dL >=35 07/05/2012 [facility] CHEMISTRY Chol 152 mg/dL 120 - 200 07/05/2012 [facility] CHEMISTRY Trig 128 mg/dL 0 - 200 07/05/2012 Normal [facility] HEMATOLOGY Segs 85.3 % 45.0 - 75.0 07/05/2012 [facility] HEMATOLOGY Monocytes 5.0 % 2.0 - 12.0 07/05/2012 [facility] HEMATOLOGY Lymphocytes 8.6 % 20.0 - 40.0 07/05/2012 [facility] HEMATOLOGY Basophils 1.0 % 0.0 - 1.0 07/05/2012 [facility] HEMATOLOGY Eosinophils 0.1 % 0.0 - 4.0 07/05/2012 [facility] HEMATOLOGY Segs-Bands # 10.8 K/CMM 1.5 - 8.1 07/05/2012 [facility] HEMATOLOGY Hypochrom Moderate *ABN* (07/05/2012 01:50:00) None Seen 07/05/2012 ABN [facility] HEMATOLOGY Microcyte 2+ *ABN* (07/05/2012 01:50:00) None Seen 07/05/2012 [facility] HEMATOLOGY Polychrom Slight (07/05/2012 01:50:00) None Seen 07/05/2012 [facility] HEMATOLOGY Basophils # 0.1 K/CMM 0.0 - 0.2 07/05/2012 [facility] HEMATOLOGY Monocytes # 0.6 K/CMM 0.0 - 0.8 07/05/2012 [facility] HEMATOLOGY Lymphocytes # 1.1 K/CMM 1.0 - 5.5 07/05/2012 [facility] HEMATOLOGY MCHC 30.9 g/dL 32.0 - 36.0 07/05/2012 LOW 13Result Comment: hp rechecked [facility] HEMATOLOGY RDW 16.8 % 11.5 - 14.5 07/05/2012 [facility] HEMATOLOGY MCV 67.7 fL 81.0 - 99.0 07/05/2012 [facility] HEMATOLOGY MCH 21.0 pg 27.0 - 31.0 07/05/2012 [facility] HEMATOLOGY Platelet 436 K/CMM 133 - 450 07/05/2012 Normal [facility] HEMATOLOGY MPV 9.2 fL 7.4 - 10.4 07/05/2012 Normal [facility] HEMATOLOGY Hct 34.0 % 36.0 - 48.0 07/05/2012 [facility] HEMATOLOGY RBC 5.02 M/CMM 4.20 - 5.40 07/05/2012 Normal [facility] HEMATOLOGY Hgb 10.5 g/dL 12.0 - 16.0 07/05/2012 [facility] HEMATOLOGY WBC 12.7 K/CMM 3.7 - 10.4 07/05/2012 HI [facility] BLOOD BANK RESULTS ABO/Rh B POS 07/05/2012 Unknown [facility] BLOOD BANK RESULTS Antibody Scrn Negative (07/04/2012 21:25:00) 07/05/2012 Normal [facility] CHEMISTRY hCG Tot <1.0 mIU/mL <sup>11</sup>
(07/04/2012 19:20:16) <sup> </sup> 07/05/2012 Normal 11Interpretive Data: Reference Range: Male 0 - [...] 8,175 - 55,868 18 8,099 - 58,176 [facility] CHEMISTRY Globulin 4.0 g/dL 2.0 - 4.0 07/05/2012 Normal [facility] CHEMISTRY A/G Ratio 0.6 0.7 - 1.6 07/05/2012 [facility] CHEMISTRY Alk Phos 77 unit/L 39 - 136 07/05/2012 Normal [facility] CHEMISTRY Bili Total 1.2 mg/dL 0.2 - 1.3 07/05/2012 Normal [facility] CHEMISTRY AST 24 unit/L 0 - 37 07/05/2012 Normal [facility] CHEMISTRY ALT 15 unit/L 0 - 65 07/05/2012 Normal [facility] CHEMISTRY Albumin Lvl 2.4 g/dL 3.5 - 5.0 07/05/2012 LOW [facility] CHEMISTRY Total Protein 6.4 g/dL 6.4 - 8.4 07/05/2012 Normal [facility] CHEMISTRY B/C Ratio 7 6 - 25 07/05/2012 Normal [facility] CHEMISTRY Total CK 60 unit/L 12 - 191 07/05/2012 Normal [facility] CHEMISTRY Troponin-I 0.02 ng/mL 0.00 - 0.40 07/05/2012 Normal [facility] CHEMISTRY Troponin-T null 0.000 - 0.100 07/05/2012 Normal [facility] CHEMISTRY Bili Direct 0.2 mg/dL 0.0 - 0.3 07/05/2012 Normal [facility] HEMATOLOGY Hypochrom Slight (07/04/2012 19:20:00) None Seen 07/05/2012 Normal [facility] HEMATOLOGY Polychrom Slight (07/04/2012 19:20:00) None Seen 07/05/2012 Normal [facility] HEMATOLOGY Eosinophils # 0.2 K/CMM 0.0 - 0.5 07/05/2012 Normal [facility] HEMATOLOGY Plt Morph Clumped 14 (07/04/2012 19:20:00) 07/05/2012 Normal 14Result Comment: Due to occasional clumps, the actual count may be slightly higher. [facility] HEMATOLOGY INR 1.24 0.85 - 1.17 07/05/2012 HI 17Interpretive Data: RECOMMENDED RANGES FOR PROTIME INR: 2.0-3.0 for most medical and surgical thromboembolic states. 2.5-3.5 for artificial heart valves and recurrent embolism. INR SHOULD BE USED ONLY FOR PATIENTS ON STABLE ANTICOAGULANT THERAPY. [facility] HEMATOLOGY PT 15.8 s 12.0 - 14.7 07/05/2012 [facility] HEMATOLOGY PTT 21.6 s 22.9 - 35.8 07/05/2012 LOW 20Interpretive Data: Heparin Therapeutic Range: 57 - 92 Seconds [facility] CHEMISTRY POC Creatinine 1.3 mg/dL 0.5 - 1.4 07/05/2012 Normal [facility] Vital Signs Vital Sign Value Date Comments Source Diastolic (mm Hg) 93 07/07/2012 [facility] Systolic (mm Hg) 168 07/07/2012 [facility] Respitory Rate 31 07/07/2012 [facility] Temperature Oral (F) 98.2 F 07/07/2012 [facility] Respitory Rate 25 07/07/2012 [facility] Respitory Rate 26 07/07/2012 [facility] Height 160.02 cm 07/07/2012 [facility] Weight 143.182 07/07/2012 [facility] Temperature Oral (F) 98.6 F 07/07/2012 [facility] Systolic (mm Hg) 175 07/07/2012 [facility] Diastolic (mm Hg) 91 07/07/2012 [facility] Diastolic (mm Hg) 89 07/07/2012 [facility] Systolic (mm Hg) 151 07/07/2012 [facility] Temperature Oral (F) 98.9 F 07/07/2012 [facility] Weight 150 07/06/2012 [facility] Height 155.4 cm 07/06/2012 [facility] Height 160.02 cm 07/06/2012 [facility] Encounters Location Location Details Encounter Type Encounter Number Reason For Visit Attending Provider ADM Date DC Date Status Source [facility] Inpatient [id number] STROKE HUBER RICE 07/04/2012 07/07/2012 Active [facility] Outpatient [id number] YARITZA GASTON 05/07/2015 Active [facility] Outpatient [id number] CHELY POWELL 10/08/2015 Active [facility] Outpatient [id number] YARITZA GASTON 11/07/2015 Active [facility] Outpatient [id number] YARITZA GASTON 08/02/2016 Active [facility] Outpatient [id number] YARITZA GASTON 08/11/2016 Active [facility] Outpatient [id number] YARITZA GASTON 09/01/2016 Active [facility] Outpatient [id number] YARITZA GASTON 10/05/2016 Active [facility] Outpatient [id number] YARITZA GASTON 10/22/2016 Active [facility] Outpatient [id number] YARITZA GASTON 10/26/2016 Active [facility] Procedures Procedure Code Date Perfomer Comments Source Hernia repair [id number] [facility]
[2018-09-01 15:59] LABS: BASOPHILS % 0.3 % (0.0-1.0); EOSINOPHILS # (AUTO) 0.1 (0.0-0.4); EOSINOPHILS % 1.1 % (0.0-6.0); HEMATOCRIT 35.6 % (34.2-44.1); HEMOGLOBIN 9.8 g/dL (12.0-16.0); LYMPHOCYTES % 14.1 % (18.0-39.1); MEAN CORPUSCULAR HEMOGLOBIN 22.5 pg (28-32); MEAN CORPUSCULAR HGB CONC 27.5 g/dL (31-35); MEAN CORPUSCULAR VOLUME 81.8 fL (81-99); MONOCYTES # (AUTO) 0.5 (0.2-0.8); MONOCYTES % 7.5 % (4.4-11.3); NEUTROPHILS # (AUTO) 5.4 (2.1-6.9); NEUTROPHILS % 76.4 % (38.7-80.0); PLATELET COUNT 420 x10e3/uL (140-360); RED BLOOD COUNT 4.35 x10e6/uL (3.6-5.1); RED CELL DISTRIBUTION WIDTH 17.5 % (11.7-14.4)
[2018-09-01 16:07] LABS: INR 1.17; PARTIAL THROMBOPLASTIN TIME 32.7 seconds (23.8-35.5); PROTHROMBIN TIME 15.5 seconds (11.9-14.5)
[2018-09-01 16:15] LABS: ALBUMIN 2.7 g/dL (3.5-5.0); ALBUMIN/GLOBULIN RATIO 0.6 (0.8-2.0); ANION GAP 16.4 mmol/L (8-16); CALCIUM 8.5 mg/dL (8.4-10.2); CREATININE, SERUM 4.84 mg/dL (0.57-1.11); MAGNESIUM 1.9 MG/DL (1.3-2.1); POTASSIUM 4.4 mmol/L (3.5-5.1)
[2018-09-01 16:23] LABS: CREATINE KINASE MB 0.7 ng/mL (0-5.0)
--- NOTE | 2018-09-01 16:49 | Diagnostic Imaging Report ---
EXAMINATION: CHEST SINGLE (PORTABLE) INDICATION: Weakness, leg swelling. COMPARISON: None FINDINGS: TUBES and LINES: None. LUNGS: Low lung volumes which decreases sensitivity and specificity for pathology. There are patchy opacities at the lung bases bilaterally. There is moderate perihilar fullness and indistinctness of the pulmonary vasculature. PLEURA: Possible small pleural effusion. No evidence of pneumothorax. HEART AND MEDIASTINUM: The cardiomediastinal silhouette is moderately enlarged. BONES AND SOFT TISSUES: No acute osseous amount he. UPPER ABDOMEN: No free air under the diaphragm. IMPRESSION: Cardiomegaly with moderate pulmonary interstitial edema. Patchy opacities at lung bases may represent atelectasis, alveolar edema, or pneumonia in the appropriate clinical setting. Signed by: Dr. Jazzmine Landrum MD on 09/01/2018 4:45 PM
[2018-09-01 16:52] LABS: CLARITY,URINE HAZY (CLEAR); COLOR,URINE YELLOW (YELLOW); KETONES,URINE NEGATIVE (NEGATIVE); LEUKOCYTE ESTERASE ,URINE NEGATIVE (NEGATIVE); NITRITE,URINE NEGATIVE (NEGATIVE); PROTEIN,URINE DIPSTICK 2+ (NEGATIVE)
[2018-09-01 16:53] LABS: BILIRUBIN,URINE NEGATIVE (NEGATIVE); URINE UROBILINOGEN 0.2 mg/dL (0.2 - 1)
[2018-09-01 17:45] LABS: EPITHELIAL CELLS,URINE MANY /LPF; WBC,URINE (MAN) 0-5 /HPF (0-5)
--- OUTSIDE RECORDS SUMMARY | 2018-09-01 19:39 | XMS REPORT ---
Author Author [facility] Address Unknown Phone Unavailable Care Team Providers Care Electric Range Servicer Name Role Phone Gab CHAMBERS Unavailable Unavailable Problems This patient has no known problems. Allergies, Adverse Reactions, Alerts This patient has no known allergies or adverse reactions. Medications This patient has no known medications. Results Test Description Test Time Test Comments Text Results Atomic Results Result Comments CHEST SINGLE (PORTABLE) 2018-09-01 16:43:00 [place] [address] Patient Name: DAVIAN CARDONA MR #: [id number] : 1970 Age/Sex: 48/F Req #: [id number] Adm Physician: Ordered by: LIZETH CHAMBERS MD Report #: [id number] Location: ER Room/Bed: Procedure: [id number] DX/CHEST SINGLE (PORTABLE) Exam Date: 09/01/18 Exam Time: 1620 REPORT STATUS: Signed EXAMINATION: CHEST SINGLE (PORTABLE) INDICATION: Weakness, leg swelling. COMPARISON: None FINDINGS: TUBES and LINES: None. LUNGS: Low lung volumes which decreases sensitivity and specificity for pathology. There are patchy opacities at the lung bases bilaterally. There is moderate perihilar fullness and indistinctness of the pulmonary vasculature. PLEURA: Possible small pleural effusion. No evidence of pneumothorax. HEART AND MEDIASTINUM: The cardiomediastinal silhouette is moderately enlarged. BONES AND SOFT TISSUES: No acute osseous amount he. UPPER ABDOMEN: No free air under the diaphragm. IMPRESSION: Cardiomegaly with moderate pulmonary interstitial edema. Patchy opacities at lung bases may represent atelectasis, alveolar edema, or pneumonia in the appropriate clinical setting. Signed by: Dr. Leigha Christian MD on 09/01/2018 4:45 PM Dictated By: LEIGHA CHRISTIAN MD 1640 Transcribed By: KAREN on 09/01/18 1649 COPY TO: LIZETH CHAMBERS MD
[2018-09-01] MEDS ORDERED: FUROSEMIDE INJ 10 MG/ML 4 ML VIAL IV ONE (19:45)
[2018-09-01] MEDS ORDERED: ONDANSETRON HCL INJ 2MG/ML 2ML 2 MG/ML VIAL IV PRN (19:45)
[2018-09-01 20:57] VITALS: BP 133/70
[2018-09-01 21:50] VITALS: BP 133/70
[2018-09-01] MEDS ORDERED: ATORVASTATIN CA20 MG PO (22:08)
[2018-09-01] MEDS ORDERED: NIFEDIPINE ER30 M1 PO (22:08)
[2018-09-01] MEDS ORDERED: CARVEDILOL25 MG PO (22:08)
[2018-09-01] MEDS ORDERED: HYDRALAZINE HC100 MG PO (22:08)
[2018-09-01] MEDS ORDERED: LASIX20 MG PO (22:08)
[2018-09-02] VITALS (7 sets, daily range): BP systolic 97–141; BP diastolic 59–74
[2018-09-02 03:08] LABS: CREATINE KINASE MB 0.7 ng/mL (0-5.0)
--- NOTE | 2018-09-02 07:00 | NUR ---
Rcvd patient in report this am. Patient is asleep in bed at this time. No s/s of distress noted
--- NOTE | 2018-09-02 07:40 | NUR ---
H&P cc: abnormal labs HPI: 48yoF, PCP , found to have abnormal labs with elevated creatinine. Pt aware of renal dysfunctio in past, had seen a assistant pressman in past. NO change in urination. Not aware of CKD stage. PMH: CKD stage?, HTN, CHF, EVELYN PShx: hernia allergies; see emr FH/SH; single; no etoh/cigs meds; see MAR ROS: no f/c/s/N/V/D/CARMONA/vision changes/dysuria/leg pain/skin rash/dizziness v/s; revd PE: tired appearing; large body habitus anicteric ns1s2 mod bs soft nt nd no e/t a&ox3; gil skin dry flat affect labs/meds revd A/P: 48yoF EVELYN in CKD stage? Pulmonary edema AECHF Morbid obesity BMI 57.1 HTn HLD PLAN renal u/s nephr consult hba1c/lipids restart home meds except lasix i/o José Walter MD, Phd.
[2018-09-02 09:34] LABS: BASOPHILS % 0.3 % (0.0-1.0); EOSINOPHILS # (AUTO) 0.1 (0.0-0.4); EOSINOPHILS % 1.3 % (0.0-6.0); HEMATOCRIT 33.4 % (34.2-44.1); HEMOGLOBIN 9.2 g/dL (12.0-16.0); LYMPHOCYTES # (AUTO) 0.7 (1.0-3.2); LYMPHOCYTES % 11.6 % (18.0-39.1); MEAN CORPUSCULAR HEMOGLOBIN 22.9 pg (28-32); MEAN CORPUSCULAR HGB CONC 27.5 g/dL (31-35); MEAN CORPUSCULAR VOLUME 83.1 fL (81-99); MONOCYTES # (AUTO) 0.5 (0.2-0.8); MONOCYTES % 7.6 % (4.4-11.3); NEUTROPHILS # (AUTO) 4.8 (2.1-6.9); NEUTROPHILS % 78.7 % (38.7-80.0); PLATELET COUNT 383 x10e3/uL (140-360); RED BLOOD COUNT 4.02 x10e6/uL (3.6-5.1); RED CELL DISTRIBUTION WIDTH 17.2 % (11.7-14.4)
[2018-09-02 09:53] LABS: ALBUMIN 2.5 g/dL (3.5-5.0); ALBUMIN/GLOBULIN RATIO 0.6 (0.8-2.0); ANION GAP 14.1 mmol/L (8-16); CALCIUM 8.1 mg/dL (8.4-10.2); CREATININE, SERUM 4.78 mg/dL (0.57-1.11); POTASSIUM 4.1 mmol/L (3.5-5.1)
[2018-09-02 10:07] LABS: CHOL/HDL RATIO 3.9 (3.0-3.6)
[2018-09-02 10:19] LABS: CREATINE KINASE MB 0.9 ng/mL (0-5.0)
--- NOTE | 2018-09-02 11:00 | NUR ---
Patient c/o a rash under her breasts. Will call MD for new orders.
--- NOTE | 2018-09-02 11:10 | NUR ---
Patient is AAOx3. Patient lung valerio diminished to auscultation. Bowel sounds present x4. No shortness of breath noted at rest. Patient on O2 at 2L NC. Patient resting in bed at this time. No edema noted. Patient ambulates on her own. NO c/o pain
--- NOTE | 2018-09-02 11:20 | NUR ---
Nutrition Screen Note RD Recommendation for Physician: Continue diet as ordered Plan of Care: RD following, monitoring for adequacy and tolerance Nutrition reason for involvement: Nutrition Risk Trigger - Acute on chronic renal failure Primary Diagnose(s): Acute on chronic renal failure, CHF Ht: 62in Wt:312.25bs BMI:57.1 kg/m2 IBW:110lbs RD Assessment:(09/02/2018) Initial encounter with patient. Pt states that her appetite/intake has been decreased during the past month. Pt denies any difficulty chewing or swallowing nor has any N, V, D. Pt states that she feels like she has gained wt due to fluid. Current Diet: Renal diet Malnutrition Evaluation 09/02/2018 The patient does not meet criteria for a specified degree of malnutrition at this time. Will re-evaluate at follow-up as appropriate. Diet Education Needs Assessment: Diet education not indicated. Diet Adequacy: Meeting calorie needs, Meeting protein needs, Meeting fluid needs Tolerance: Tolerating PO Nutrition Care Level:Albert Hardy RD, LD, CNSC
--- NOTE | 2018-09-02 15:22 | NUR ---
CASE MANAGEMENT INITIAL ASSESSMENT Iso Coordinator to bedside to discuss plan of care with patient/family. CM/SW role and care transitions discussed. Anticipated discharge plan discussed along with duration of care. CM/SW discussed patients right to make decisions in care. CM/SW work hours given. Patient lives: ALONE Admit/Transfer: SENT TO ED BY MD DUE TO ABNORMAL LABS Hospital/ER visits since last admit:0 POA/Emergency contact: MOTHER: ADAIR MIXON [phone] Current/Previous Home Health: 0 PCP/Follow-up Care: DR. YUKI PATEL IN [place] Current/Previous DME: CPAP, BUT DOES NOT USE Medications (referring to index hospitalization or the first time you were in the hospital) a. Were changes made in your medications when you were in the hospital on [date of index hospitalization]? Yes No Not sure Explain: Note: If no or not sure, please skip to question d b. Did you understand the changes? Yes No Explain: c. Were you able to obtain your new medications right away? Yes No n/a SNF only Explain: d. Were you able to take your medications like the doctor wanted you to? X Yes No Explain: e. Did the hospital give you an accurate, easy to understand list of medications when you left? Yes No n/a SNF only Explain: NO RECENT HOSPITALIZATION Scale of 1-10 how comfortable does patient feel with disease management in outpatient settin Other Services: 0 Employment Status: EMPLOYED Areas of Concerns: NONE Referral Needs: NONE Education Needs: ON DIAGNOSIS AND CARE IMM/MOURA given and signed (if applicable): N/A Goal for discharge:TO DC HOME CM/SW left business card at the bedside with contact information. Name and number was also written on the patients whiteboard. Patient verbalized understanding of discussion. CM will follow-up with ongoing discharge and transition of care needs.
[2018-09-02] MEDS: NYSTATIN 15 GM POWDER UD BTL TOP PRN ×2 (15:30→23:25)
[2018-09-02] MEDS: NIFEDIPINE CR 30 MG TAB PO SCH (16:46)
[2018-09-02] MEDS ORDERED: CARVEDILOL 12.5 MG TAB PO SCH (17:00)
[2018-09-02] MEDS ORDERED: HYDRALAZINE HCL 100 MG TABLET PO SCH (17:00)
[2018-09-02 18:24] LABS: CREATINE KINASE MB 0.8 ng/mL (0-5.0)
[2018-09-02] MEDS: ATORVASTATIN 20 MG TAB PO SCH (20:11)
--- NOTE | 2018-09-02 20:50 | NUR ---
DR. PETTY DOING ROUNDS. NEW ORDER RCV FOR PRN TYLENOL.
[2018-09-02] MEDS ORDERED: ACETAMINOPHEN 325 MG TAB PO PRN (21:00)
[2018-09-03] VITALS (9 sets, daily range): BP systolic 97–131; BP diastolic 52–67
[2018-09-03] MEDS ORDERED: HYDRALAZINE HCL 100 MG TABLET PO SCH (08:00)
[2018-09-03] MEDS ORDERED: CARVEDILOL 12.5 MG TAB PO SCH (08:00)
[2018-09-03 08:10] LABS: ALBUMIN 2.4 g/dL (3.5-5.0); ALBUMIN/GLOBULIN RATIO 0.6 (0.8-2.0); CALCIUM 7.8 mg/dL (8.4-10.2); CREATININE, SERUM 4.61 mg/dL (0.57-1.11)
[2018-09-03] MEDS: NIFEDIPINE CR 30 MG TAB PO SCH ×2 (08:37→17:21)
--- NOTE | 2018-09-03 14:35 | NUR ---
IM- progress note O/N: no events ROS: no f/c/s/N/V/D/CARMONA/vision changes/dysuria/leg pain/skin rash/dizziness v/s; revd PE: tired appearing; large body habitus anicteric ns1s2 mod bs soft nt nd no e/t a&ox3; gil skin dry flat affect labs/meds revd A/P: 48yoF EVELYN in CKD stage? Pulmonary edema AECHF Morbid obesity BMI 57.1 HTn HLD PLAN renal u/s nephr consult hba1c/lipids restart home meds except lasix i/o Reduce antiHTN meds for enhanced renal perfusion; f/u nephr recs. José Walter MD, Phd.
--- NOTE | 2018-09-03 15:07 | Diagnostic Imaging Report ---
RENAL ULTRASOUND TECHNIQUE: Ultrasound evaluation of the KIDNEYS. Color Doppler evaluation was utilized to supplement the evaluation. HISTORY: Acute kidney injury versus chronic kidney disease COMPARISON: None available. DISCUSSION: RIGHT KIDNEY: The right kidney measures 8.2 cm in length. The cortex measures 1 cm in thickness. Parenchyma is within normal limits. No hydronephrosis or solid mass lesions. Increased cortical echogenicity. LEFT KIDNEY: The left kidney measures 9 cm in length. The cortex measures 1.2 cm in thickness. Parenchyma is within normal limits. No hydronephrosis or solid mass lesions. Increased cortical echogenicity. BLADDER: Decompressed IMPRESSION: Findings compatible medical renal disease. Signed by: Dr. Al Ace D.O., M.M.M. on 09/03/2018 3:03 PM
[2018-09-03] MEDS: ATORVASTATIN 20 MG TAB PO SCH (20:29)
[2018-09-03] MEDS: CARVEDILOL 3.125 MG TAB PO SCH (20:29)
[2018-09-03] MEDS: HYDRALAZINE HCL 25 MG TAB PO SCH (22:00)
[2018-09-04 04:10] VITALS: BP 104/51
[2018-09-04] MEDS: HYDRALAZINE HCL 25 MG TAB PO SCH ×2 (06:14→14:47)
--- NOTE | 2018-09-04 07:00 | NUR ---
bedside rounds complete no distress noted, updated on poc voiced understanding, denies pain at this time, r fa 20g no ss of infiltration noted,call light in reach will continue to monitor
[2018-09-04 08:37] VITALS: BP 113/56
[2018-09-04] MEDS: NIFEDIPINE CR 30 MG TAB PO SCH ×2 (08:43→16:50)
[2018-09-04] MEDS: CARVEDILOL 3.125 MG TAB PO SCH ×2 (08:43→21:15)
[2018-09-04 08:46] VITALS: BP 113/56
[2018-09-04 12:31] VITALS: BP 117/58
--- NOTE | 2018-09-04 14:08 | NUR ---
IM- progress note O/N: no events ROS: no f/c/s/N/V/D/CARMONA/vision changes/dysuria/leg pain/skin rash/dizziness v/s; revd PE: tired appearing; large body habitus anicteric ns1s2 mod bs soft nt nd no e/t a&ox3; gil skin dry flat affect labs/meds revd A/P: 48yoF EVELYN in CKD stage? Pulmonary edema AECHF Morbid obesity BMI 57.1 HTn HLD PLAN renal u/s nephr consult hba1c/lipids restart home meds except lasix i/o Reduce antiHTN meds for enhanced renal perfusion; f/u nephr recs. / check labs José Walter MD, Phd.
--- NOTE | 2018-09-04 15:30 | NUR ---
pt transferred to rm 204 report given to receiving nurse,
[2018-09-04 15:37] LABS: CREATININE, SERUM 4.51 mg/dL (0.57-1.11)
--- NOTE | 2018-09-04 18:00 | NUR ---
24 hour urine collection started
--- NOTE | 2018-09-04 18:09 | NUR ---
16f damon inserted per MD order.
[2018-09-04 20:00] VITALS: BP 122/57
[2018-09-04 21:15] VITALS: BP 122/57
[2018-09-04] MEDS: ATORVASTATIN 20 MG TAB PO SCH (21:15)
--- NOTE | 2018-09-04 22:54 | Consultation ---
DATE OF CONSULTATION: 09/04/2018 HISTORY OF PRESENT ILLNESS: This is a 48-year-old Afro-[place] lady with past history of hypertension, borderline diabetes, who was sent here by her primary care physician because of a creatinine level of 5. She is currently awake and alert. She has never seen a electric tripper machine operator as an outpatient. She has paraumbilical hernia surgery. She did have a history of congestive heart failure. She was also noted some pain in her soles of her feet, which is preventing her from walking. She is currently sitting up in no apparent distress. Denies shortness of breath, nausea, or vomiting. Complains of dyspnea on exertion though. CURRENT MEDICATIONS: Ondansetron p.r.n., Tylenol p.r.n., atorvastatin 40 mg at bedtime, nifedipine 30 mg b.i.d., carvedilol 3.125 once a day, and hydralazine 25 mg p.o. q.8. SOCIAL HISTORY: The patient does not smoke or drink. ALLERGIES: NO APPARENT DRUG ALLERGIES. FAMILY HISTORY: Hypertension. PHYSICAL EXAMINATION: GENERAL: Awake and alert. VITAL SIGNS: This is a lady with a BMI of 56.14 with a height of 5 feet 2 inches, blood pressure 117/58, pulse is 66, afebrile, and oxygen saturation 96%. HEAD AND NECK: Cornea clear. Mucosa moist. LUNGS: Decreased air entry at bases. No rales or rhonchi. HEART: S1, S2 audible. ABDOMEN: Soft and nontender. EXTREMITIES: Trace ankle edema bilateral. CURRENT LABORATORY DATA: Sodium 139, potassium 4, bicarbonate 29, creatinine 4.6 with a white count 6, hemoglobin 9.2. LFTs within normal range. WORKUP: Kidney ultrasound shows 8.2 and 9 cm kidney with increased cortical echogenicity. IMPRESSION: Acute kidney injury, possibly chronic kidney failure with superimposed acute kidney injury. PLAN: On adjusting her blood pressure medication, we will change Procardia to 60 mg twice a day. I am going to stop the hydralazine at this point in time. We will have a Burr catheter placed, start 24-hour urine collection for creatinine clearance and protein. We will apply knee-high RITCHIE hoses. Obtain urinalysis and urine, protein, and creatinine ratio, please see workup. MD KARLO Sutton/TIANNAL /[id number]
[2018-09-05] VITALS (8 sets, daily range): BP systolic 98–127; BP diastolic 54–65
[2018-09-05 03:31] LABS: CREATININE,URINE RANDOM 143.5 mg/dL (47-110)
[2018-09-05 05:39] LABS: ALBUMIN 2.5 g/dL (3.5-5.0); ALBUMIN/GLOBULIN RATIO 0.7 (0.8-2.0); ANION GAP 12.7 mmol/L (8-16); CALCIUM 7.6 mg/dL (8.4-10.2); CREATININE, SERUM 4.51 mg/dL (0.57-1.11); POTASSIUM 3.7 mmol/L (3.5-5.1)
--- NOTE | 2018-09-05 05:41 | NUR ---
IM- progress note O/N: no events ROS: no f/c/s/N/V/D/CARMONA/vision changes/dysuria/leg pain/skin rash/dizziness v/s; revd PE: tired appearing; large body habitus anicteric ns1s2 mod bs soft nt nd no e/t a&ox3; gil skin dry flat affect labs/meds revd A/P: 48yoF EVELYN in CKD stage? Pulmonary edema AECHF Morbid obesity BMI 57.1 HTn HLD PLAN renal u/s nephr consult hba1c/lipids restart home meds except lasix i/o Reduce antiHTN meds for enhanced renal perfusion; f/u nephr recs. 09/04 check labs 09/05 EVELYN in CKD4. Pt was told CKD4 1 year ago. Currently close to baseline. f/u renal studies. José Walter MD, Phd.
[2018-09-05 07:13] LABS: TOTAL PROTEIN, URINE 522.9 mg/dL (1-14)
--- NOTE | 2018-09-05 07:15 | NUR ---
Received in report from hotel night auditor nurse that patient c/o damon leaking and was attempted to be fixed by deflating and reinflating balloon. Will continue to monitor damon for leaking
[2018-09-05 07:37] LABS: BILIRUBIN,URINE NEGATIVE (NEGATIVE); CLARITY,URINE CLEAR (CLEAR); COLOR,URINE YELLOW (YELLOW); KETONES,URINE NEGATIVE (NEGATIVE); LEUKOCYTE ESTERASE ,URINE NEGATIVE (NEGATIVE); NITRITE,URINE NEGATIVE (NEGATIVE); PROTEIN,URINE DIPSTICK 2+ (NEGATIVE); URINE UROBILINOGEN 0.2 mg/dL (0.2 - 1)
[2018-09-05 07:56] LABS: AMORPHOUS SEDIMENT,URINE MODERATE (FEW); BACTERIA,URINE RARE /HPF; EPITHELIAL CELLS,URINE RARE /LPF; RBC,URINE 0-5 /HPF (0-5)
--- NOTE | 2018-09-05 08:45 | NUR ---
Patient c/o damon leaking. Notified Dr. Shen, will reinsert larger damon size catheter and restart 24 hour urine collection
[2018-09-05] MEDS: NIFEDIPINE CR 30 MG TAB PO SCH (09:30)
[2018-09-05] MEDS: CARVEDILOL 3.125 MG TAB PO SCH ×2 (09:30→19:57)
--- NOTE | 2018-09-05 10:45 | NUR ---
18f damon inserted per MD order. 24 hour urine collection starts now. Will monitor damon for any leaking. Patient denies needing anything else at this time,
--- NOTE | 2018-09-05 14:15 | NUR ---
Notified Dr. Shen that 18f damon is also leaking. He ordered an external catheter to be placed.
--- NOTE | 2018-09-05 15:30 | NUR ---
Burr was removed with tip intact. Patient is cleaning up and then will place external catheter
[2018-09-05] MEDS ORDERED: ONDANSETRON HCL 4 MG ORAL DISINTEGRATING TAB PO PRN (15:45)
--- NOTE | 2018-09-05 17:05 | NUR ---
External catheter placed 24 hour urine collection started
--- NOTE | 2018-09-05 19:15 | NUR ---
RECEIVED PATIENT. PATIENT IS AAOX3. RESP EVEN AND UNLABORED. NO ACUTE DISTRESS NOTED. PATIENT DENIES OF ANY PAIN OR DISCOMFORT AT THIS TIME. CALL LIGHT WITHIN REACH. INSTRUCT TO CALL FOR ASSISTANCE. BED LOW/LOCKED. SIDE RAIL UPX2. CONTINUE TO MONITOR CLOSELY
[2018-09-05] MEDS: ATORVASTATIN 20 MG TAB PO SCH (20:58)
[2018-09-06] VITALS: BP 109/52
[2018-09-06 04:00] VITALS: BP 111/58
--- NOTE | 2018-09-06 06:28 | NUR ---
Discharge summary: Principal Dx: EVELYN in CKD4 AECHF Pulmonary Edema Morbid obesity BMI 57.1 Secondary dx: HTn HLD PLAN renal u/s nephr consult hba1c/lipids restart home meds except lasix i/o Reduce antiHTN meds for enhanced renal perfusion; f/u nephr recs. 09/04 check labs 09/05 EVELYN in CKD4. Pt was told CKD4 1 year ago. Currently close to baseline. f/u renal studies. 09/06 check labs; d/c planning; d.c home f/u pcp 1 week and 1 week stable d/c>35mins José Walter MD, Phd.
[2018-09-06 07:34] VITALS: BP 104/57
[2018-09-06 07:51] LABS: ANION GAP 12.9 mmol/L (8-16); CALCIUM 7.5 mg/dL (8.4-10.2); CREATININE, SERUM 4.43 mg/dL (0.57-1.11); POTASSIUM 3.9 mmol/L (3.5-5.1)
[2018-09-06] MEDS: CARVEDILOL 3.125 MG TAB PO SCH (08:00)
[2018-09-06 11:04] VITALS: BP 108/58
[2018-09-06] MEDS ORDERED: ACETAMINOPHEN 325 MG TAB PO ONE (11:15)
[2018-09-06 12:14] VITALS: BP 108/58
[2018-09-06] MEDS ORDERED: COREG3.125 MG PO (14:16)
[2018-09-06 15:15] VITALS: BP 123/68
--- NOTE | 2018-09-06 15:29 | NUR ---
Patient alert and responsive, OOB and ambulated in the room, on recliner for a while and back to bed. Denies any pains, no resp distress, call light within reach, continues on 24 hour urine collection until 1700 Dr. Hermelinda borges to see patient prior to discharge.
[2018-09-06] MEDS ORDERED: LASIX40 MG PO (15:59)
[2018-09-06 18:39] LABS: CREATININE,URINE RANDOM 63.59 mg/dL (47-110)
== END 2018-09-06 18:34 | disposition home or self-care (01) | DRG 291 ==
LOC: ER 15:31 → ERHOLD 19:36 → MED/SURG 20:47 → MED/SURG2 09-04 15:26
PROVIDERS: ADMIT Internal Medicine; ATTEND Internal Medicine
DX: I13.0 Hypertensive heart and chronic kidney disease with heart failure and stage 1 through stage 4 chronic kidney disease, or unspecified chronic kidney disease (principal); I50.23 Acute on chronic systolic (congestive) heart failure; N17.9 Acute kidney failure, unspecified; J81.1 Chronic pulmonary edema; Z68.43 Body mass index [BMI] 50.0-59.9, adult; N18.4 Chronic kidney disease, stage 4 (severe); I50.1 Left ventricular failure, unspecified; I10 Essential (primary) hypertension
CPT/HCPCS: 36415; 71045; 76770; 80048; 80053; 80061; 81001; 81050; 82550; 82553; 82570; 82575; 83036; 83735; 83880; 84156; 84484; 85025; 85610; 85730; 93005; 93306; 99284; J1940